=== PATIENT | female | born 1930 | race Caucasian/White ===

== ENCOUNTER 2017-02-20 21:07 | Inpatient (IN) | payer OTHER ==
[~2017-02-20] VITALS: Ht 167.6 cm; Wt 62.6 kg
[~2017-02-20 21:07] MED LIST: ALEN70TA PO; AMIO200T PO; HYDR-4446 PO; LEVO0.1211 PO; MAGN400T11 PO; METO25TA PO; MIRABULK PO; MULT-2410 PO; ORE25 PO; PIPE1SOL IV; SENN-72 PO; SIMV10TA6 PO
[2017-02-20 21:13] VITALS: BP 130/90
--- NOTE | 2017-02-20 21:39 | NUR ---
PT KARLENE BLS. TAKEN TO BED 8
--- NOTE | 2017-02-20 21:42 | NUR ---
PT MOVED TO BED 3
--- NOTE | 2017-02-20 21:47 | NUR ---
86 Y/O F BIBA C/O ABNORMAL LABS, SODIUM 166, PATIENT ALERT X 2, NON, VERBAL, ON NONREBREATHER MASK AT 15 LT, 02 SAT 99%. VSS, ER MD MADE AWARE.
[2017-02-20] MEDS ORDERED: DOCU-67 PO (21:56)
[2017-02-20] MEDS ORDERED: NA P135N19 RC (21:56)
[2017-02-20] MEDS ORDERED: ALEN70TA1 PO (21:56)
[2017-02-20] MEDS ORDERED: BISA-213 PR (21:56)
[2017-02-20] MEDS ORDERED: NACL 0.9% 2,000 ML IV ONE (22:05)
--- NOTE | 2017-02-20 22:10 | NUR ---
PT RESTING IN BED, RECEIVING IV FLUIDS, VS REMAIN STABLE. WILL CONT TO MONITOR.
[2017-02-20] MEDS ORDERED: MAGN400T7 PO (22:14)
[2017-02-20] MEDS ORDERED: ORE25 PO (22:14)
[2017-02-20] MEDS ORDERED: MAGN400S60 PO (22:14)
[2017-02-20] MEDS ORDERED: [UNRECOGNIZED DRUG - CODE] PO (22:14)
[2017-02-20] MEDS ORDERED: ACET-2869 PO (22:14)
[2017-02-20] MEDS ORDERED: METO25TA PO (22:14)
[2017-02-20] MEDS ORDERED: ASPI81EC97 PO (22:14)
[2017-02-20] MEDS ORDERED: ACET-1182 PO (22:14)
[2017-02-20 22:50] LABS: HEMOGLOBIN 16.4 g/dL (12.0-16.0); MEAN CORPUSCULAR HEMOGLOBIN 30 pg (27-31); MEAN CORPUSCULAR HGB CONC 31 g/dL (33-37); MEAN CORPUSCULAR VOLUME 95 fL (80-94); PLATELET COUNT (AUTO) 155 K/uL (140-450); RED BLOOD CELL COUNT(AUTO) 5.52 MIL/uL (4.20-5.40); RED CELL DISTRIBUTION WIDTH 14.6 % (11.6-13.7); WHITE BLOOD COUNT (AUTO) 8.5 K/uL (4.8-10.8)
[2017-02-20 22:52] LABS: APPEARANCE,URINE HAZY (CLEAR); BILIRUBIN,URINE NEGATIVE (NEGATIVE); BLOOD, URINE NEGATIVE (NEGATIVE); COLOR,URINE YELLOW (YELLOW); LEUKOCYTE ESTERASE ,URINE NEGATIVE (NEGATIVE); NITRITE, URINE NEGATIVE (NEGATIVE); PROTEIN,URINE NEGATIVE (NEGATIVE); UGLUCOSE NEGATIVE (NEGATIVE); UROBILINOGEN,URINE 0.2 EU/dL (0.2 - 1)
[2017-02-20 23:02] LABS: HEMATOCRIT 49.2 % (36-48)
[2017-02-20 23:03] LABS: BAND % (MANUAL) 14 % (0-8); LYMPHOCYTES % (MANUAL) 20 % (20-46); MONOCYTES % (MANUAL) 8 % (5-12); NEUTROPHILS % (MANUAL) 58 (43-65)
[2017-02-20 23:07] LABS: BACTERIA,URINE FEW /HPF (None Seen); MUCUS,URINE 4+ /LPF (None Seen); RBC,URINE 0-5 (RARE) /HPF (0-5); SQUAMOUS EPITHELIAL CELL,UR 0-3 (FEW) /LPF (0-3 (FEW)); URINE AMORPHOUS URATE 4+ /HPF (None Seen); WBC,URINE 0-5 (RARE) /HPF (0-5)
[2017-02-20 23:11] LABS: LACTIC ACID 1.7 mmol/L (0.4-2.0)
[2017-02-20 23:14] LABS: ANION GAP 11.1 (8-16); CARBON DIOXIDE 33.5 mmol/L (21-32); CHLORIDE 120 mmol/L (98-107); POTASSIUM 3.6 mmol/L (3.5-5.1)
[2017-02-20 23:15] LABS: ALKALINE PHOSPHATASE 165 U/L (46-116); CREATININE 2.5 mg/dL (0.6-1.3); GLUCOSE 147 mg/dL (74-106); TOTAL BILIRUBIN 0.4 mg/dL (0.0-1.0)
[2017-02-20 23:16] LABS: ALANINE AMINOTRANSFERASE 327 U/L (14-59); ALBUMIN 3.5 g/dL (3.4-5.0); ASPARTATE AMINOTRANSFERASE 282 U/L (15-37); TOTAL PROTEIN, SERUM 8.7 g/dL (6.4-8.2)
[2017-02-20 23:18] LABS: SODIUM SERUM 161 mmol/L (136-145)
[2017-02-20 23:19] LABS: UREA NITROGEN, BLOOD 87 mg/dL (7-18)
[2017-02-20] MEDS ORDERED: VANCOMYCIN 1GM/DEXT 5% PREMIX 200 ML IV ONE (23:45)
[2017-02-20] MEDS ORDERED: VANCOMYCIN PER PHARMACY MC PRN (23:45)
[2017-02-20] MEDS ORDERED: MEROPENEM 1,000 MG in NACL 0.9% 100 ML IV ONE (23:45)
--- NOTE | 2017-02-21 00:10 | NUR ---
PT RESTING IN BED, REPOSITIONED FOR COMFORT, VSS. WILL CONT TO MONITOR.
[2017-02-21] MEDS ORDERED: ONDANSETRON 4 MG/2 ML VIAL IM/IVP PRN (00:35)
[2017-02-21] MEDS ORDERED: DOCUSATE SODIUM 100 MG GELCAP PO PRN (00:35)
[2017-02-21] MEDS ORDERED: HYDROcodone/APAP 7.5/325 MG 1 TAB PO PRN (00:35)
[2017-02-21] MEDS ORDERED: MORPHINE SULFATE 2 MG/ML SYR IVP PRN (00:35)
[2017-02-21] MEDS ORDERED: ACETAMINOPHEN 325 MG TAB PO PRN (00:35)
[2017-02-21] MEDS ORDERED: MEROPENEM 1,000 MG VIAL IV ONE (00:39)
[2017-02-21] MEDS ORDERED: NACL 0.45% 1,000 ML IV ONE (00:45)
[2017-02-21] MEDS ORDERED: LEVOFLOXACIN 750 MG/D5W PREMIX 150 ML IV SCH (00:55)
[2017-02-21] MEDS ORDERED: PIPERACILLIN/TAZOBACTAM 2.25 GM in DEXTROSE 5% 50 ML IV SCH (00:55)
[2017-02-21 00:57] LABS: PARTIAL THROMBOPLASTIN TIME 23.2 secs (22-35.6); PROTHROMBIN TIME 10.4 secs (10.8-13.4)
[2017-02-21] MEDS ORDERED: VANCOMYCIN 1,000 MG VIAL ONE (01:12)
[2017-02-21] MEDS ORDERED: VANCOMYCIN 1GM/DEXT 5% PREMIX 200 ML IV ONE (01:25)
[2017-02-21] MEDS ORDERED: VANCOMYCIN PER PHARMACY MC PRN (01:25)
[2017-02-21 01:56] LABS: FREE T4 (FREE THYROXINE) 0.82 ng/dL (0.76-1.46); PHOSPHORUS 3.9 mg/dL (2.5-4.9); THYROID STIMULATING HORMONE 18.08 uIU/mL (0.34-3.74)
--- NOTE | 2017-02-21 02:10 | NUR ---
RESIDENT EVALUATING PT AT BEDSIDE.
--- NOTE | 2017-02-21 03:00 | NUR ---
PT ASLEEP, ON MONITOR, VSS. SINUS RHYTHM.
--- NOTE | 2017-02-21 04:10 | NUR ---
PT ASLEEP, REPOSITIONING DONE, VS REMAIN STABLE, NO S/S OF DISTRESS NOTED AT THE MOMENT. WILL CONT TO MONITOR.
[2017-02-21 04:14] LABS: BASOPHILS # (AUTO) 0.3 K/uL (0.00-0.22); BASOPHILS % (AUTO) 3.6 % (0.0-2.0); EOSINOPHILS # (AUTO) 0.2 K/uL (0-0.4); EOSINOPHILS % (AUTO) 2.7 % (0.0-4.0); LYMPHOCYTES # (AUTO) 1.7 K/uL (2.5-16.5); LYMPHOCYTES % (AUTO) 18.8 % (20.5-51.1); MEAN CORPUSCULAR HEMOGLOBIN 30 pg (27-31); MEAN CORPUSCULAR HGB CONC 32 g/dL (33-37); MEAN CORPUSCULAR VOLUME 95 fL (80-94); MONOCYTES # (AUTO) 0.5 K/uL (0.8-1.0); MONOCYTES % (AUTO) 5.7 % (1.7-9.3); NEUTROPHILS # (AUTO) 6.2 K/uL (1.8-7.7); NEUTROPHILS % (AUTO) 69.2 % (42.2-75.2); PLATELET COUNT (AUTO) 127 K/uL (140-450); RED BLOOD CELL COUNT(AUTO) 4.32 MIL/uL (4.20-5.40); RED CELL DISTRIBUTION WIDTH 14.6 % (11.6-13.7); WHITE BLOOD COUNT (AUTO) 8.9 K/uL (4.8-10.8)
[2017-02-21] MEDS ORDERED: NACL 0.9% 1,000 ML IV SCH (04:20)
--- NOTE | 2017-02-21 04:30 | NUR ---
PT TAKEN FOR CT SCAN.
[2017-02-21 04:34] LABS: ANION GAP 7.6 (8-16); CALCIUM 8.2 mg/dL (8.5-10.1); CARBON DIOXIDE 31.7 mmol/L (21-32); CHLORIDE 125 mmol/L (98-107); CREATININE 2.2 mg/dL (0.6-1.3); GLUCOSE 98 mg/dL (74-106); POTASSIUM 3.3 mmol/L (3.5-5.1)
[2017-02-21 04:35] LABS: MAGNESIUM 2.4 mg/dL (1.8-2.4); PHOSPHORUS 3.1 mg/dL (2.5-4.9)
[2017-02-21 04:48] LABS: SODIUM SERUM 161 mmol/L (136-145); UREA NITROGEN, BLOOD 76 mg/dL (7-18)
--- NOTE | 2017-02-21 05:19 | NUR ---
PT RESPOSITIONED FOR COMFORT, VSS, WILL CONT TO MONITOR.
[2017-02-21] MEDS ORDERED: MAGNESIUM HYDROXIDE 2400 MG/30 ML UDC PO SCH (05:20)
[2017-02-21] MEDS ORDERED: BISACODYL 10 MG SUPP RC SCH (05:20)
[2017-02-21] MEDS ORDERED: HYDROcodone/APAP 5/325 MG 1 TAB TAB PO SCH (05:20)
[2017-02-21] MEDS ORDERED: INSULIN LISPRO SLIDING SCALE 100 UNITS/ML VIAL SUBQ PRN (05:30)
[2017-02-21] MEDS ORDERED: DEXTROSE 50% 50 ML SYR IVP PRN (05:30)
--- NOTE | 2017-02-21 05:51 | NUR ---
Patient will be admitted to care of DR ESTEVES. Admited to TELEMETRY. Will go to room 124B. Belongings list completed. Report to EZRA MOREAU.
--- NOTE | 2017-02-21 06:02 | NUR ---
PT TRASFERRED TO FLOOR VIA [facility], ACCOMPANIED BY RN AND EMT. NO S/S OF DISTRESS NOTED DURING TRASFER.
[2017-02-21] MEDS ORDERED: ALENDRONATE SODIUM 70 MG TAB PO SCH (06:30)
--- NOTE | 2017-02-21 07:30 | NUR ---
RECEIVED REPORT FROM NIGHT NURSE AT PT BEDSIDE. PT RESTING IN BED. ON O2 4L NC. APHASIC. DOES NOT FOLLOW COMMANDS. PATIENT HAS EYES OPENING SPONTANEOUS. IV SITE PATENT AND INTACT. BED REST. RIGHT SIDE UE WEAKNESS/STIFFNESS. 2ND TOE LEFT FOOT NOTED TO BE AMPUTATED, NO S/S OF ACUTE DISTRESS. BOWENS IN PLACE TO GRAVITY IN MODERATE AMOUNT. WEAK BILATERAL PULSES BUE/BLE. CALL LIGHT WITHIN REACH. BED IN LOWEST POSITION. FALL PRECAUTION IN PLACE. WILL CONTINUE TO MONITOR.
[2017-02-21] MEDS ORDERED: ACETAMINOPHEN 325 MG TAB PO SCH (08:00)
[2017-02-21] MEDS: DOCUSATE SODIUM 100 MG GELCAP PO SCH ×2 (09:00→21:00)
[2017-02-21] MEDS: BLOOD GLUCOSE MONITORING 1 DEV DEV FS SCH ×4 (09:08→21:07)
--- NOTE | 2017-02-21 09:40 | NUR ---
PER MD NGT NEEDED FOR MEDICATION ADMINISTRATION. SOFT NGT INSERTED INTO RIGHT NARE, MARKED NGT PLACEMENT. AWAITING CHEST XR FOR CONFIRMED PLACEMENT. WILL CONTINUE TO MONITOR.
[2017-02-21] MEDS: CLINDAMYCIN 600 MG in DEXTROSE 5% 50 ML IV SCH ×3 (09:47→21:07)
[2017-02-21 10:50] VITALS: BP 121/64
[2017-02-21] MEDS ORDERED: DEXT 5% / NACL 0.45% 1,000 ML IV SCH (10:50)
[2017-02-21] MEDS: ALBUTEROL SULFATE/IPRATROPIU 3 ML SOL IH SCH ×4 (11:17→23:04)
--- NOTE | 2017-02-21 11:17 | NUR ---
SATURATION 100% ON SUPPLEMENTAL OXYGEN AT 4 LPM VIA NC POST HHN THERAPY TITRATED FIO2 TO 2LPM KEV/RN AT BEDSIDE AWARE
--- NOTE | 2017-02-21 11:30 | NUR ---
PATIENT UNABLE TO PARTICIPATE IN INCENTIVE SPIROMETRY THERAPY DUE TO LOC
--- NOTE | 2017-02-21 11:34 | NUR ---
PATIENT TAKEN FOR CT SCAN. NO S/S OF ACUTE DISTRESS NOTED.
[2017-02-21 12:00] VITALS: BP 124/56
[2017-02-21 12:34] LABS: ALANINE AMINOTRANSFERASE 208 U/L (14-59); ALBUMIN 2.7 g/dL (3.4-5.0); ALKALINE PHOSPHATASE 120 U/L (46-116); ANION GAP 6.6 (8-16); ASPARTATE AMINOTRANSFERASE 149 U/L (15-37); CALCIUM 8.2 mg/dL (8.5-10.1); CARBON DIOXIDE 32.9 mmol/L (21-32); CHLORIDE 125 mmol/L (98-107); CREATININE 2.1 mg/dL (0.6-1.3); GLUCOSE 99 mg/dL (74-106); POTASSIUM 3.5 mmol/L (3.5-5.1); TOTAL BILIRUBIN 0.5 mg/dL (0.0-1.0); TOTAL PROTEIN, SERUM 6.7 g/dL (6.4-8.2)
[2017-02-21 12:40] LABS: SODIUM SERUM 161 mmol/L (136-145)
[2017-02-21 12:41] LABS: UREA NITROGEN, BLOOD 72 mg/dL (7-18)
[2017-02-21] MEDS: ECOTRIN 81 MG TABEC PO SCH (13:04)
[2017-02-21] MEDS: METOPROLOL 25 MG TAB PO SCH ×2 (13:05→21:00)
[2017-02-21] MEDS: HYDROCHLOROTHIAZIDE 25 MG TAB PO SCH (13:05)
[2017-02-21] MEDS: SENNA 8.6 MG TAB PO SCH ×2 (13:05→21:00)
[2017-02-21] MEDS: LACTOBACILLUS RHAMNOSUS GG 1 EACH CAP PO SCH (13:05)
[2017-02-21] MEDS: MAGNESIUM OXIDE 400 MG TAB PO SCH ×2 (13:05→21:00)
[2017-02-21] MEDS: AMIODARONE 200 MG TAB PO SCH (13:06)
[2017-02-21] MEDS: MULTIVITAMIN 1 TAB PO SCH (13:06)
[2017-02-21] MEDS: POLYETHYLENE GLYCOL 17 GM/PKT PO SCH (13:06)
[2017-02-21] MEDS: LEVOTHYROXINE 0.075 MG TAB PO SCH (13:08)
--- NOTE | 2017-02-21 14:30 | NUR ---
ASSISTED PT IN CHANGING OF POSITIONS. NO S/S OF ACUTE DISTRESS.
--- NOTE | 2017-02-21 15:52 | NUR ---
ORAL PHARYNX SUCTION FOR MODERATE THICK PALE YELLOW SECRETIONS TOLERATED PROCEDURE WELL WITHOUT ADVERSE REACTIONS NOTED
[2017-02-21 16:00] VITALS: BP 115/80
--- NOTE | 2017-02-21 17:15 | NUR ---
ASLEEP EASILY AWAKENS CLASS CODE DNR ABG PROCEDURE FAINT TO ZERO PULSES LEFT SIDE ZERO PULSES AT RIGHT SIDE PUNCTURE X2 LEFT RADIAL TO LEFT BRACHIAL (FLASH) NATIONAL SALES DIRECTOR TO SPEAK TO DR. MICK COLINDRES
--- NOTE | 2017-02-21 17:25 | NUR ---
REVIEWED ABG ATTEMPT NOTED AT [address] MICK COLINDRES SUPERVISOR DAIRY SANITATION AND MD TO PATIENT BEDSIDE MD LOCATING FAINT PULSES AT LEFT RADIAL PULSE MD REQUEST ABG ATTEMPT DURING NOC SHIFT SUPERVISOR DAIRY SANITATION TO ENDORSE MD REQUEST TO NOC
--- NOTE | 2017-02-21 18:00 | NUR ---
MD MADE AWARE OF ABNORMAL LABS AND ELECTROLYTES. NO NEW ORDERS. MD TO CONTINUE TO MONITOR.
[2017-02-21 18:41] LABS: BLOOD GAS BASE EXCESS 2.9 mmol/L (-2.0-2.0); BLOOD GAS HCO3 28.4 mmol/L; BLOOD GAS O2 SAT% 98.3 % (92.0-98.5); BLOOD GAS PCO2 47.3 mmHg (20-50); BLOOD GAS PH 7.397 (7.35-7.45); BLOOD GAS PO2 125.4 mmHg
--- NOTE | 2017-02-21 18:46 | NUR ---
PATIENT FOUND WITH NG TUBE REMOVED. PCP MADE AWARE. NO NEW ORDERS. NO NEED TO REINSERT AT THIS TIME.
[2017-02-21 18:49] LABS: ANION GAP 11.5 (8-16); CALCIUM 8.2 mg/dL (8.5-10.1); CARBON DIOXIDE 31.5 mmol/L (21-32); CHLORIDE 125 mmol/L (98-107); GLUCOSE 99 mg/dL (74-106)
[2017-02-21 18:51] LABS: SODIUM SERUM 165 mmol/L (136-145); UREA NITROGEN, BLOOD 65 mg/dL (7-18)
--- NOTE | 2017-02-21 19:10 | NUR ---
ENDORSED PLAN OF CARE TO NIGHT RN AT PT BEDSIDE. NO S/S OF ACUTE DISTRESS NOTED.
--- NOTE | 2017-02-21 19:20 | NUR ---
183 ABG WAS DRAWN ON 2LNC. RESULTS NORMAL. SEE LAB RESULTS. DR NOTIFIED
--- NOTE | 2017-02-21 19:21 | NUR ---
RECEIVED REPORT FROM AM NURSE. PT IS ON BED ASLEEP, APHASIC. ON O2 VIA NC AT 2 L. IS ABLE TO OPEN EYES SPONTANEOUSLY TO TOUCH. ON BED REST. NO S/S OF DISTRESS. FLACC - 0. RIGHT SIDED WEAKNESS NOTED. NOTED WITH A LEFT FOOT 2ND TOE AMPUTATION. BOWENS IN PLACE, DRAINING TO YELLOW URINE. INITIAL ASSESSMENT DONE. CALL LIGHT WITHIN REACH. SAFETY CHECKS IN PLACE. WILL CONTINUE TO MONITOR FOR ANY CHANGES.
[2017-02-21 20:00] VITALS: BP 110/65
[2017-02-21] MEDS: SIMVASTATIN 10 MG TAB PO SCH (21:00)
--- NOTE | 2017-02-21 21:10 | NUR ---
SPOKE TO DR. RIVERS IN REGARDS TO GIVING PATIENT HER ORAL MEDICATION. MENTIONED THAT EARLIER HER NG TUBE WAS REMOVED DURING AM SHIFT AND THE MORNING DOCTORS KNEW AND THAT SHE IS MOST LIKELY TO ASPIRATE WHEN GIVEN MEDICATIONS ORALLY. SAID TO HOLD ORAL MEDICATIONS FOR THE NIGHT AND THAT SHE WILL JUST RECEIVE HER IV MEDICATIONS. NOTED.
[2017-02-21] MEDS ORDERED: NACL 0.45% 1,000 ML IV SCH (21:25)
[2017-02-21] MEDS ORDERED: POTASSIUM CHLORIDE 40 MEQ, LIDOCAINE 1% 25 MG in NACL 0.9% 250 ML IV ONE (21:30)
[2017-02-21] MEDS ORDERED: KCL 20 MEQ/WATER INJ PREMIX 200 ML IV ONE (22:10)
[2017-02-21] MEDS ORDERED: KCL 20 MEQ/WATER INJ PREMIX 200 ML IV SCH (22:15)
--- NOTE | 2017-02-21 23:09 | NUR ---
1900 PT UNABLE TO DO AN INSENTIVE SPIROMETER. PT DOES NOT FOLLOW COMMANDS
--- NOTE | 2017-02-21 23:30 | NUR ---
STARTED PT ON POTASSIUM CHLORIDE DUE TO POTASSIUM BEING 3.0.
[2017-02-22] VITALS: BP 109/51
--- NOTE | 2017-02-22 | NUR ---
VITAL SIGNS STABLE, WILL CONTINUE TO MONITOR. ALL NEEDS ATTENDED. CALL LIGHT WITHIN REACH. SAFETY CHECKS IN PLACE.
[2017-02-22 00:26] LABS: ANION GAP 10.7 (8-16); CARBON DIOXIDE 31.5 mmol/L (21-32); CHLORIDE 125 mmol/L (98-107); CREATININE 2.1 mg/dL (0.6-1.3); GLUCOSE 96 mg/dL (74-106); POTASSIUM 3.2 mmol/L (3.5-5.1); UREA NITROGEN, BLOOD 60 mg/dL (7-18)
--- NOTE | 2017-02-22 00:31 | NUR ---
RECEIVED CRITICAL LAB OF SODIUM OF 164. PAGED DR. RIVERS. AWAITING CALL BACK.
[2017-02-22 00:33] LABS: SODIUM SERUM 164 mmol/L (136-145)
--- NOTE | 2017-02-22 00:39 | NUR ---
DR. RIVERS PAGED BACK FOR THE CRITICAL LAB, NO NEW ORDERS. NOTED. WILL CONTINUE TO MONITOR.
--- NOTE | 2017-02-22 02:12 | NUR ---
MADE ROUNDS, PT ASLEEP. NO S/S OF DISTRESS. WILL CONTINUE TO MONITOR. CALL LIGHT WITHIN REACH.
[2017-02-22] MEDS: ALBUTEROL SULFATE/IPRATROPIU 3 ML SOL IH SCH ×6 (03:04→23:13)
[2017-02-22] MEDS: CLINDAMYCIN 600 MG in DEXTROSE 5% 50 ML IV SCH ×4 (03:28→20:37)
[2017-02-22 04:00] VITALS: BP 95/45
--- NOTE | 2017-02-22 04:14 | NUR ---
VITAL SIGNS STABLE. NO S/S OF DISTRESS. FLACC - 0. WILL CONTINUE TO MONITOR. ALL NEEDS ATTENDED. CALL LIGHT WITHIN REACH. SAFETY CHECKS IN PLACE.
[2017-02-22] MEDS ORDERED: DEXT 5% / NACL 0.45% 1,000 ML IV SCH (06:00)
[2017-02-22] MEDS ORDERED: DEXTROSE 5% 1,000 ML IV SCH (06:10)
[2017-02-22 06:14] LABS: BASOPHILS # (AUTO) 0.4 K/uL (0.00-0.22); BASOPHILS % (AUTO) 4.1 % (0.0-2.0); EOSINOPHILS # (AUTO) 0.1 K/uL (0-0.4); EOSINOPHILS % (AUTO) 1.6 % (0.0-4.0); HEMATOCRIT 37.4 % (36-48); HEMOGLOBIN 11.9 g/dL (12.0-16.0); LYMPHOCYTES # (AUTO) 1.7 K/uL (2.5-16.5); LYMPHOCYTES % (AUTO) 18.8 % (20.5-51.1); MEAN CORPUSCULAR HEMOGLOBIN 30 pg (27-31); MEAN CORPUSCULAR HGB CONC 32 g/dL (33-37); MEAN CORPUSCULAR VOLUME 95 fL (80-94); MONOCYTES # (AUTO) 0.9 K/uL (0.8-1.0); MONOCYTES % (AUTO) 9.7 % (1.7-9.3); NEUTROPHILS # (AUTO) 5.7 K/uL (1.8-7.7); NEUTROPHILS % (AUTO) 65.8 % (42.2-75.2); RED BLOOD CELL COUNT(AUTO) 3.93 MIL/uL (4.20-5.40); RED CELL DISTRIBUTION WIDTH 14.3 % (11.6-13.7)
[2017-02-22] MEDS: LEVOTHYROXINE 0.075 MG TAB PO SCH (06:29)
--- NOTE | 2017-02-22 06:29 | NUR ---
DID NOT GIVE MORNING PO MEDS DUE TO THE RISK OF ASPIRATION AND DR. RIVERS ALREADY AWARE.
[2017-02-22] MEDS ORDERED: ALENDRONATE SODIUM 70 MG TAB PO SCH (06:30)
[2017-02-22 06:34] LABS: ANION GAP 11.3 (8-16); CALCIUM 8.1 mg/dL (8.5-10.1); CARBON DIOXIDE 30.7 mmol/L (21-32); CHLORIDE 125 mmol/L (98-107); GLUCOSE 83 mg/dL (74-106); UREA NITROGEN, BLOOD 59 mg/dL (7-18)
[2017-02-22 06:37] LABS: SODIUM SERUM 163 mmol/L (136-145)
[2017-02-22 06:38] LABS: MAGNESIUM 2.3 mg/dL (1.8-2.4); PHOSPHORUS 3.5 mg/dL (2.5-4.9)
[2017-02-22] MEDS: BLOOD GLUCOSE MONITORING 1 DEV DEV FS SCH ×4 (06:47→20:37)
[2017-02-22 07:01] LABS: PLATELET COUNT (AUTO) 110 K/uL (140-450)
[2017-02-22 07:02] LABS: WHITE BLOOD COUNT (AUTO) 8.8 K/uL (4.8-10.8)
--- NOTE | 2017-02-22 07:13 | NUR ---
ASSUMED CONTINUITY OF CARE. NO SIGNS AND SYMPTOMS OF ACUTE DISTRESS NOTED. INITIAL ASSESSMENT DONE. RE-ORIENTED TO EVENTS AND SURROUNDINGS. HOB ELEVATED. ASPIRATION AND FALL PRECAUTION APPLIED. CALL LIGHT WITHIN REACH.
--- NOTE | 2017-02-22 07:13 | NUR ---
ENDORSED TO AM SHIFT NURSE FOR CONTINUITY OF CARE, IN STABLE CONDITION.
--- NOTE | 2017-02-22 07:44 | NUR ---
INFORMED DR. COLINDRES ABOUT PT. BS 71 AT 0647, AND RECOMMEND SWALLOW EVAL FOR PT. INABILITY TO SWALLOW. PER DR. COLINDRES SHE WILL HOLD ALL PO MEDS AND WILL ORDER SWALLOW EVAL.
[2017-02-22 08:00] VITALS: BP 103/46
--- NOTE | 2017-02-22 08:02 | NUR ---
Patient's Plan of Care was discussed and reviewed with MIRA: Uriel.
[2017-02-22 08:18] LABS: T4 (THYROXINE) 8.2 ug/dL (4.5-12.0)
[2017-02-22] MEDS: ECOTRIN 81 MG TABEC PO SCH (09:00)
[2017-02-22] MEDS: POLYETHYLENE GLYCOL 17 GM/PKT PO SCH (09:00)
[2017-02-22] MEDS: SENNA 8.6 MG TAB PO SCH ×2 (09:00→20:40)
[2017-02-22] MEDS: METOPROLOL 25 MG TAB PO SCH ×2 (09:00→20:40)
[2017-02-22] MEDS: HYDROCHLOROTHIAZIDE 25 MG TAB PO SCH (09:00)
[2017-02-22] MEDS: AMIODARONE 200 MG TAB PO SCH (09:00)
[2017-02-22] MEDS: MAGNESIUM OXIDE 400 MG TAB PO SCH ×2 (09:00→20:40)
[2017-02-22] MEDS: LACTOBACILLUS RHAMNOSUS GG 1 EACH CAP PO SCH (09:00)
[2017-02-22] MEDS: MULTIVITAMIN 1 TAB PO SCH (09:00)
[2017-02-22] MEDS: DOCUSATE SODIUM 100 MG GELCAP PO SCH ×2 (09:00→20:40)
[2017-02-22 09:14] LABS: HEMOGLOBIN A1C 5.9 % (4.8-5.6)
--- NOTE | 2017-02-22 10:50 | NUR ---
RT -PADMA CAME FOR PT. BREATHING TREATMENT. TOLERATED WELL.
--- NOTE | 2017-02-22 10:54 | NUR ---
02/22/17 RD INITIAL ASSESSMENT COMPLETED PLEASE REFER TO NUTRITION ASSESSMENT UNDER CARE ACTIVITY FOR ESTIMATED NUTRITIONAL NEEDS. 1. CONTINUE 60 GM CONSISTENT CARBOHYDRATE DIET, HONEY THICK LIQUIDS (WITH TEXTURE PER ST RECOMMENDATIONS). 2. IF PO DIET NOT FEASIBLE, WILL HONOR PATIENTS WISHES REGARDING NUTRITION SUPPORT 3. RD TO FOLLOW-UP 2-3 DAYS, HIGH RISK ALAINA FLOWERS RD
[2017-02-22 12:00] VITALS: BP 111/74
[2017-02-22 12:51] LABS: ANION GAP 11.5 (8-16); CALCIUM 7.8 mg/dL (8.5-10.1); CARBON DIOXIDE 31.2 mmol/L (21-32); CHLORIDE 122 mmol/L (98-107); GLUCOSE 78 mg/dL (74-106); POTASSIUM 3.7 mmol/L (3.5-5.1); UREA NITROGEN, BLOOD 55 mg/dL (7-18)
--- NOTE | 2017-02-22 12:59 | NUR ---
CLINICAL REVIEW DONE.
[2017-02-22 13:11] LABS: SODIUM SERUM 161 mmol/L (136-145)
--- NOTE | 2017-02-22 15:25 | NUR ---
WOUND CARE EVALUATION NOTES: REASON FOR EVALUATION: LOW IBAN SCORE - 11 COMPLETE SKIN ASSESSMENT DONE ON THIS 86 Y/O FEMALE PATIENT FROM [facility] TO [facility], WITH INITIAL DIAGNOSIS OF PNA. PAST MEDICAL AND SURGICAL HISTORY INCLUDE A FIB, PVD, DM, HTN. ALL ABOVE INFORMATION WAS OBTAINED FROM THE ADMISSION H&P. LABS ARE WBC 8.8, H/H 11.9/37.4, GLUCOSE 78, PT/INR 10.4/1.0 AND APTT 23.2. CURRENT MEDS IN CLUDE LEVOFLOXACIN, LISPRO INSULIN, METOPROLOL SIMVASTATIN, NORCO. PATIENT IS AWAKE, OPENS EYES, EYES ABLE TO TRACK MOVEMENT, BUT UNABLE TO FOLLOW SIMPLE COMMAND. FC 16 FR PATENT AND INTACT TO YELLOW COLOR URINE IN MODERATE AMOUNT. SKIN WARM AND DRY TO TOUCH WNL, NO EDEMA BLE, NO HAIR GROWTH AND BILATERAL PEDAL PULSES PRESENT AND STRONG . SCD I PLACE BLE. RIGHT AC PERIPHERAL LINE PATENT AND INTACT. NEEDS MAX ASSISTANCE WITH 2 PERSON IN TURNING. INITIAL PLAN OF CARE AND PRESSURE PREVENTIVE MEASURES DISCUSSED WITH PATIENT'S DAUGHTER, KEN. ABLE TO VERBALIZE UNDERSTANDING. INTEGUMENTARY: LEFT ARM - MULTIPLE ECCHYMOSIS WITH LARGEST MEASURE [id number] NASAL PASSAGE MUCOSAL MEMBRANE INTACT MILD LINE EPIGASTRIC-OLD SURGICAL SCAR BILATERAL HEELS - BLANCHABLE REDNESS LEFT SECOND TOE OLD AMPUTATION SCAR RECOMMENDATIONS: -APPLY MOISTURIZER TO DRY SKIN -TURN AND REPOSITION PATIENT Q2H -ASSESS AND MONITOR BLANCHABLE REDNESS ON BILATERAL HEELS. NOTIFY PMD OF ANY ABNORMAL CHANGES -OFFLOAD BILATERAL HEELS BY PLACING PILLOWS UNDER CALVES AT ALL TIMES, UNLESS OTHERWISE CONTRAINDICATED -KEEP SKIN CLEAN AND DRY AT ALL TIMES. -PRESSURE REDISTRIBUTION SURFACE THERAPY -DIETITIAN CONSULT RECOMMENDATIONS DISCUSSED WITH PRIMARY RN. WILL FOLLOW UP PATIENT Q 7 DAYS AND PRN. PLEASE CONTACT [facility] FOR ANY CONCERNS, QUESTIONS AND CHANGES IN SKIN CONDITION. Addendum: 02/22/17 at 1530 by Kirstin Guzman RN (Grace) WOUND CARE EVALUATION NOTES: REASON FOR EVALUATION: LOW IBAN SCORE - 11 COMPLETE SKIN ASSESSMENT DONE ON THIS 86 Y/O FEMALE PATIENT FROM [facility] TO [facility], WITH INITIAL DIAGNOSIS OF PNA. PAST MEDICAL AND SURGICAL HISTORY INCLUDE A FIB, PVD, DM, HTN. ALL ABOVE INFORMATION WAS OBTAINED FROM THE ADMISSION H&P. LABS ARE WBC 8.8, H/H 11.9/37.4, GLUCOSE 78, PT/INR 10.4/1.0 AND APTT 23.2. CURRENT MEDS IN CLUDE LEVOFLOXACIN, LISPRO INSULIN, METOPROLOL SIMVASTATIN, NORCO. PATIENT IS AWAKE, OPENS EYES, EYES ABLE TO TRACK MOVEMENT, BUT UNABLE TO FOLLOW SIMPLE COMMAND. FC 16 FR PATENT AND INTACT TO YELLOW COLOR URINE IN MODERATE AMOUNT. SKIN WARM AND DRY TO TOUCH WNL, NO EDEMA BLE, NO HAIR GROWTH AND BILATERAL PEDAL PULSES PRESENT AND STRONG . SCD I PLACE BLE. RIGHT AC PERIPHERAL LINE PATENT AND INTACT. NEEDS MAX ASSISTANCE WITH 2 PERSON IN TURNING. INITIAL PLAN OF CARE AND PRESSURE PREVENTIVE MEASURES DISCUSSED WITH PRIMARY RN. INTEGUMENTARY: LEFT ARM - MULTIPLE ECCHYMOSIS WITH LARGEST MEASURE [id number] NASAL PASSAGE MUCOSAL MEMBRANE INTACT MILD LINE EPIGASTRIC-OLD SURGICAL SCAR BILATERAL HEELS - BLANCHABLE REDNESS LEFT SECOND TOE OLD AMPUTATION SCAR RECOMMENDATIONS: -APPLY MOISTURIZER TO DRY SKIN -TURN AND REPOSITION PATIENT Q2H -ASSESS AND MONITOR BLANCHABLE REDNESS ON BILATERAL HEELS. NOTIFY PMD OF ANY ABNORMAL CHANGES -OFFLOAD BILATERAL HEELS BY PLACING PILLOWS UNDER CALVES AT ALL TIMES, UNLESS OTHERWISE CONTRAINDICATED -KEEP SKIN CLEAN AND DRY AT ALL TIMES. -PRESSURE REDISTRIBUTION SURFACE THERAPY -DIETITIAN CONSULT RECOMMENDATIONS DISCUSSED WITH PRIMARY RN. WILL FOLLOW UP PATIENT Q 7 DAYS AND PRN. PLEASE CONTACT [facility] FOR ANY CONCERNS, QUESTIONS AND CHANGES IN SKIN CONDITION.
--- NOTE | 2017-02-22 15:35 | NUR ---
RT CAME FOR SCHEDULED BREATHING TREATMENT. TOLERATED WELL. KEEP COMFORTABLE ON BED.
[2017-02-22 16:00] VITALS: BP 112/44
--- NOTE | 2017-02-22 18:42 | NUR ---
ST [facility] REPORTED THAT PT. FAILED SWALLOW EVAL. INFORMED CHARGE NURSE LILY SEWELL -EZRA.
--- NOTE | 2017-02-22 19:08 | NUR ---
* ST NOTE * Pt seen at bedside. Bedside dysphagia and oral mechanism exams completed. See evaluation report for further details. Pt tolerating 0/2 alternating PO trials of puree apple sauce 3-4 CCs at a time via a spoon, demonstrating labial leakage of trials, impaired AP bolus transit, as well as incomplete laryngeal excursion, causing pt to demonstrate coughing after PO intake. Pt also tolerating 0/2 alternating PO trials of honey-thickened apple juice 3-4 CCs at a time via a spoon as well, demonstrating labial leakage and impaired AP bolus transit, as well as wet, gargly vocal quality after PO intake. Due to pt's hx of aspiration PNA and current case of PNA as well as impaired AP bolus transit, impaired labial closure and hx of dysarthria, it is recommended pt remain NPO to avoid further PNA. Pt is at high risk for malnutrition & dehydration, thus an RD referral is recommmended for potential artificial means of nutrition vs hospice care secondary to pt's POLST. No further ST follow up recommended at this time. Pt and caregivers/nsg education completed regarding results of evaluation; benefits of abiding by strict NPO status secondary to pt being at high risk for aspiration PNA d/t severe oropharyngeal dysphagia; and recommendation for artificial means of nutrition vs hospice care secondary to pt's POLST, with pt and caregivers/nsg verbalizing understanding and agreement with clinician's recommendations. Recommend: - Pt remain NPO at this time secondary to severe oropharyngeal dysphagia placing pt at high risk for repeat aspiration PNA - Consultation with MD, RD and pt family regarding artificial means of nutrition vs. hospice care, secondary to pt's POLST stating preference for no artificial means of nutrition - Suction PRN - Frequent oral care secondary to dried secretions d/t pt being NPO No further ST follow up recommended at this time. G8996 CN G8997 CM G8998 CM NOMS Level 6 Time In/Out 18:15 - 18:45
[2017-02-22 19:11] LABS: ANION GAP 8.3 (8-16); CALCIUM 7.7 mg/dL (8.5-10.1); CARBON DIOXIDE 32.2 mmol/L (21-32); CHLORIDE 121 mmol/L (98-107); CREATININE 1.9 mg/dL (0.6-1.3); GLUCOSE 110 mg/dL (74-106); POTASSIUM 3.5 mmol/L (3.5-5.1); SODIUM SERUM 158 mmol/L (136-145); UREA NITROGEN, BLOOD 49 mg/dL (7-18)
--- NOTE | 2017-02-22 19:16 | NUR ---
BEDSIDE REPORT GIVEN TO LYNN GONSALVES -EZRA. IVF INFUSING WELL. IN STABLE CONDITION. ALSO ENDORSED THAT PT. FAILED SWALLOW EVAL.
--- NOTE | 2017-02-22 19:16 | NUR ---
RECEIVED REPORT FROM AM NURSE. PT IS ASLEEP, BUT IS ABLE TO OPEN EYES SPONTANEOUSLY WHEN TOUCHED AND APHASIC. ON O2 VIA NC AT 2L, WELL TOLERATED. NO S/S OF DISTRESS. FLACC - 0. NOTED THAT PT FAILED SWALLOW EVALUATION. ON TELE MONITORING. SKIN INTACT, NOTED WITH A LEFT FOOT 2ND TOE AMPUTATION. BOWENS CATHETER IN PLACE, DRAINING TO YELLOW URINE. INITIAL ASSESSMENT DONE. CALL LIGHT WITHIN REACH. SAFETY CHECKS IN PLACE. WILL CONTINUE TO MONITOR FOR ANY CHANGES.
[2017-02-22 20:00] VITALS: BP 105/65
[2017-02-22] MEDS: SIMVASTATIN 10 MG TAB PO SCH (20:41)
--- NOTE | 2017-02-22 20:41 | NUR ---
DID NOT GIVE THE PO MEDICATION TO PATIENT DUE TO FAILED SWALLOW EVALUATION IN THE MORNING AND NPO.
[2017-02-22] MEDS: LEVOFLOXACIN 750 MG/D5W PREMIX 150 ML IV SCH (21:18)
[2017-02-23] VITALS: BP 108/45
--- NOTE | 2017-02-23 | NUR ---
VITALS STABLE. NO S/S OF DISTRESS. FLACC - 0. WILL CONTINUE TO MONITOR. ALL NEEDS ATTENDED. CALL LIGHT WITHIN REACH. SAFETY CHECKS IN PLACE.
[2017-02-23 00:47] LABS: ANION GAP 10.6 (8-16); CALCIUM 7.4 mg/dL (8.5-10.1); CARBON DIOXIDE 30.8 mmol/L (21-32); CHLORIDE 118 mmol/L (98-107); CREATININE 1.9 mg/dL (0.6-1.3); GLUCOSE 85 mg/dL (74-106); POTASSIUM 3.4 mmol/L (3.5-5.1); SODIUM SERUM 156 mmol/L (136-145); UREA NITROGEN, BLOOD 45 mg/dL (7-18)
--- NOTE | 2017-02-23 02:10 | NUR ---
PAGED DR. RIVERS IN CLARIFICATION OF IV FLUIDS. SWITCHED FROM DEXTROSE 5% TO D5 1/2 NS DUE TO THE SODIUM GOING DOWN. NOTED AND CARRIED OUT.
[2017-02-23] MEDS: CLINDAMYCIN 600 MG in DEXTROSE 5% 50 ML IV SCH ×4 (02:42→20:45)
[2017-02-23] MEDS: DEXT 5% / NACL 0.45% 1,000 ML IV SCH ×3 (02:42→18:14)
[2017-02-23] MEDS: ALBUTEROL SULFATE/IPRATROPIU 3 ML SOL IH SCH ×6 (03:11→23:19)
[2017-02-23 04:00] VITALS: BP 110/87
--- NOTE | 2017-02-23 04:00 | NUR ---
VITAL SIGNS STABLE. NO S/S OF DISTRESS. FLACC - 0. WILL CONTINUE TO MONITOR. CALL LIGHT WITHIN REACH. SAFETY CHECKS IN PLACE.
[2017-02-23] MEDS ORDERED: MAGNESIUM HYDROXIDE 2400 MG/30 ML UDC PO PRN (05:20)
[2017-02-23] MEDS ORDERED: BISACODYL 10 MG SUPP RC PRN (05:20)
[2017-02-23] MEDS: LEVOTHYROXINE 0.075 MG TAB PO SCH (05:51)
--- NOTE | 2017-02-23 05:52 | NUR ---
DID NOT GIVE 0630 MEDS DUE TO NPO STATUS AND FAILED SWALLOWED EVALUATION
[2017-02-23 06:17] LABS: BASOPHILS # (AUTO) 0.2 K/uL (0.00-0.22); BASOPHILS % (AUTO) 3.4 % (0.0-2.0); EOSINOPHILS # (AUTO) 0.3 K/uL (0-0.4); EOSINOPHILS % (AUTO) 3.7 % (0.0-4.0); HEMATOCRIT 33.1 % (36-48); HEMOGLOBIN 10.5 g/dL (12.0-16.0); LYMPHOCYTES # (AUTO) 1.4 K/uL (2.5-16.5); LYMPHOCYTES % (AUTO) 20.2 % (20.5-51.1); MEAN CORPUSCULAR HEMOGLOBIN 30 pg (27-31); MEAN CORPUSCULAR HGB CONC 32 g/dL (33-37); MEAN CORPUSCULAR VOLUME 94 fL (80-94); MONOCYTES # (AUTO) 0.7 K/uL (0.8-1.0); MONOCYTES % (AUTO) 9.2 % (1.7-9.3); NEUTROPHILS # (AUTO) 4.5 K/uL (1.8-7.7); NEUTROPHILS % (AUTO) 63.5 % (42.2-75.2); RED BLOOD CELL COUNT(AUTO) 3.53 MIL/uL (4.20-5.40)
[2017-02-23 06:22] LABS: ANION GAP 9.5 (8-16); CALCIUM 7.6 mg/dL (8.5-10.1); CARBON DIOXIDE 29.8 mmol/L (21-32); CHLORIDE 118 mmol/L (98-107); CREATININE 1.8 mg/dL (0.6-1.3); GLUCOSE 91 mg/dL (74-106); POTASSIUM 3.3 mmol/L (3.5-5.1); SODIUM SERUM 154 mmol/L (136-145); UREA NITROGEN, BLOOD 42 mg/dL (7-18)
[2017-02-23 06:26] LABS: MAGNESIUM 1.9 mg/dL (1.8-2.4); PHOSPHORUS 2.8 mg/dL (2.5-4.9)
[2017-02-23 06:35] LABS: PLATELET COUNT (AUTO) 105 K/uL (140-450); WHITE BLOOD COUNT (AUTO) 7.1 K/uL (4.8-10.8)
[2017-02-23] MEDS: BLOOD GLUCOSE MONITORING 1 DEV DEV FS SCH ×4 (06:47→20:47)
--- NOTE | 2017-02-23 07:25 | NUR ---
ASSUMED CONTINUITY OF CARE. NO SIGNS AND SYMPTOMS OF ACUTE DISTRESS NOTED. INITIAL ASSESSMENT DONE. HOB ELEVATED. KEEP COMFORTABLE ON BED. FALL PRECAUTION APPLIED. CALL LIGHT WITHIN REACH.
--- NOTE | 2017-02-23 07:25 | NUR ---
ENDORSED TO AM SHIFT NURSE FOR CONTINUITY OF CARE, IN STABLE CONDITION.
[2017-02-23 08:00] VITALS: BP 121/53
--- NOTE | 2017-02-23 08:00 | NUR ---
Patient's Plan of Care was discussed and reviewed with BATTALION FIRE CHIEF: ELADIA GOMEZ
[2017-02-23] MEDS: HYDROCHLOROTHIAZIDE 25 MG TAB PO SCH (09:00)
[2017-02-23] MEDS: SENNA 8.6 MG TAB PO SCH ×2 (09:00→20:48)
[2017-02-23] MEDS: POLYETHYLENE GLYCOL 17 GM/PKT PO SCH (09:00)
[2017-02-23] MEDS: METOPROLOL 25 MG TAB PO SCH ×2 (09:00→20:47)
[2017-02-23] MEDS: LACTOBACILLUS RHAMNOSUS GG 1 EACH CAP PO SCH (09:00)
[2017-02-23] MEDS: MAGNESIUM OXIDE 400 MG TAB PO SCH ×2 (09:00→20:47)
[2017-02-23] MEDS: DOCUSATE SODIUM 100 MG GELCAP PO SCH ×2 (09:00→20:47)
[2017-02-23] MEDS: MULTIVITAMIN 1 TAB PO SCH (09:00)
[2017-02-23] MEDS: ECOTRIN 81 MG TABEC PO SCH (09:00)
[2017-02-23] MEDS: AMIODARONE 200 MG TAB PO SCH (09:00)
[2017-02-23] MEDS ORDERED: POTASSIUM CHLORIDE 40 MEQ, LIDOCAINE 1% 25 MG in NACL 0.9% 250 ML IV SCH (10:00)
[2017-02-23 12:00] VITALS: BP 115/56
[2017-02-23 12:48] LABS: ANION GAP 6.6 (8-16); CALCIUM 7.4 mg/dL (8.5-10.1); CARBON DIOXIDE 32.2 mmol/L (21-32); CHLORIDE 118 mmol/L (98-107); CREATININE 1.7 mg/dL (0.6-1.3); GLUCOSE 79 mg/dL (74-106); POTASSIUM 3.8 mmol/L (3.5-5.1); SODIUM SERUM 153 mmol/L (136-145); UREA NITROGEN, BLOOD 39 mg/dL (7-18)
--- NOTE | 2017-02-23 15:05 | NUR ---
RESPIRATORY THERAPIST ROLAND CAME FOR PT. BREATHING TREATMENT.
[2017-02-23 16:00] VITALS: BP 112/57
--- NOTE | 2017-02-23 18:42 | NUR ---
DR. JEFF CAME, CHECKED PT. CHART, AND SEEN PT..
--- NOTE | 2017-02-23 19:05 | NUR ---
BEDSIDE REPORT GIVEN TO RICKY FERRERA. IVF INFUSING WELL. IN STABLE CONDITION.
[2017-02-23 19:11] LABS: ANION GAP 7.4 (8-16); CALCIUM 7.3 mg/dL (8.5-10.1); CARBON DIOXIDE 30.4 mmol/L (21-32); CHLORIDE 118 mmol/L (98-107); CREATININE 1.6 mg/dL (0.6-1.3); GLUCOSE 84 mg/dL (74-106); POTASSIUM 3.8 mmol/L (3.5-5.1); SODIUM SERUM 152 mmol/L (136-145); UREA NITROGEN, BLOOD 33 mg/dL (7-18)
--- NOTE | 2017-02-23 19:20 | NUR ---
RECEIVED FROM AM NURSE IN BED . TELEMETRY MONITORING. PT. APHASIC. BOWENS CATHETER IN PLACE DRAINING WELL WITH YELLOW URINE. FLACC 0. FOR SWALLOW EVALUATION . PT. AT THIS TIME IS TOTAL CARE. WILL BE TURNED Q 2H. ON 02 AT 2LPM/NC. DX. OF PNA. AFEBRILE.
[2017-02-23 20:00] VITALS: BP 112/68
[2017-02-23] MEDS: SIMVASTATIN 10 MG TAB PO SCH (20:48)
--- NOTE | 2017-02-23 22:00 | NUR ---
SLEEPING WELL. IVF SITE INTACT AND NO INFILTRATION NOTED. TELEMETRY MONITORING. NEEDS WILL BE ANTICIPATED AND MET. TURNED Q 2H. 02 AT 2LPM/NC IN PLACE. AFEBRILE.
--- NOTE | 2017-02-24 00:16 | NUR ---
RESPIRATORY THERAPIST IN HERE TO GIVE PT. BREATHING TREATMENT. TOTAL CARE AND TURNED Q 2H. NEEDS ANTICIPATED AND MET. TELEMETRY MONITORING.APHASIC.
[2017-02-24 00:19] VITALS: BP 92/40
--- NOTE | 2017-02-24 02:00 | NUR ---
SLEEPING. NO RESTLESSNESS NOTED.
[2017-02-24 02:16] LABS: ANION GAP 8.9 (8-16); CALCIUM 7.3 mg/dL (8.5-10.1); CARBON DIOXIDE 28.6 mmol/L (21-32); CHLORIDE 117 mmol/L (98-107); CREATININE 1.6 mg/dL (0.6-1.3); GLUCOSE 96 mg/dL (74-106); POTASSIUM 3.5 mmol/L (3.5-5.1); SODIUM SERUM 151 mmol/L (136-145); UREA NITROGEN, BLOOD 30 mg/dL (7-18)
[2017-02-24] MEDS: CLINDAMYCIN 600 MG in DEXTROSE 5% 50 ML IV SCH ×4 (02:54→20:41)
[2017-02-24] MEDS: ALBUTEROL SULFATE/IPRATROPIU 3 ML SOL IH SCH ×6 (03:51→22:58)
[2017-02-24 04:35] VITALS: BP 117/55
--- NOTE | 2017-02-24 04:37 | NUR ---
TURNED Q2H. TOTAL CARE. APHASIC. TELEMETRY MONITORING.
[2017-02-24] MEDS: BLOOD GLUCOSE MONITORING 1 DEV DEV FS SCH ×4 (05:42→20:41)
[2017-02-24] MEDS: LEVOTHYROXINE 0.075 MG TAB PO SCH (05:42)
[2017-02-24 06:28] LABS: ANION GAP 8.2 (8-16); CALCIUM 7.3 mg/dL (8.5-10.1); CARBON DIOXIDE 28.3 mmol/L (21-32); CHLORIDE 117 mmol/L (98-107); CREATININE 1.6 mg/dL (0.6-1.3); GLUCOSE 96 mg/dL (74-106); POTASSIUM 3.5 mmol/L (3.5-5.1); SODIUM SERUM 150 mmol/L (136-145); UREA NITROGEN, BLOOD 27 mg/dL (7-18)
[2017-02-24] MEDS: DEXT 5% / NACL 0.45% 1,000 ML IV SCH ×2 (07:01→18:17)
--- NOTE | 2017-02-24 07:20 | NUR ---
ENDORSED TO THE NEXT RN FOR CONTINUITY OF CARE. APHASIC. NEEDS ANTICIPATED AND MET. TURNED Q 2H. TOTAL CARE. BREATHING TREATMNETS CONTINUOS BY RT.
[2017-02-24 08:00] VITALS: BP 101/72
--- NOTE | 2017-02-24 08:12 | NUR ---
RECEIVED REPORT FROM PRECISION INSTRUMENT MAKER NURSE, PT IS SLEEPING IN BED, AWAKEN WHEN CALLED BY NAME, PT IS A/OX1, PT IS APHASIC, PT IS BEDBOUND, IV IS ON THE LEFT FA, PATENT, INTACT, FLUSHING WELL, PT ALSO HAS IV ON THE RT AC, PATENT, INTACT, FLUSHING WELL, ON SL, SKIN IS INTACT, PT HAS A BOWENS CATHETER IN PLACE, 100 ML OF CLEAR YELLOW URINE NOTED IN BOWENS BAG, PT IS ON O2 2L NC, NO S/S OF RESPIRATORY DISTRESS OR DISCOMFORT NOTED, SAFETY/FALL PRECAUTIONS ARE IN PLACE, DISCUSSED PLAN OF CARE TO PT, PT UNABLE TO COMPREHEND, CALL LIGHT IS WITHIN REACH, WILL CONTINUE TO MONITOR. Addendum: 02/24/17 at 1015 by Jaqueline Dejesus RN REPORT WAS RECEIVED FROM PRECISION INSTRUMENT MAKER NURSE AT 0725.
--- NOTE | 2017-02-24 08:28 | NUR ---
DUE IVPB HUNG, PT IS RESTING IN BED IN SEMI FOWLERS POSITION, NO S/S OF RESPIRATORY DISTRESS OR DISCOMFORT NOTED, CALL LIGHT WITHIN REACH.
[2017-02-24] MEDS: METOPROLOL 25 MG TAB PO SCH ×2 (09:00→21:00)
[2017-02-24] MEDS: MAGNESIUM OXIDE 400 MG TAB PO SCH ×2 (09:00→21:00)
[2017-02-24] MEDS: SENNA 8.6 MG TAB PO SCH ×2 (09:00→21:00)
[2017-02-24] MEDS: HYDROCHLOROTHIAZIDE 25 MG TAB PO SCH (09:00)
[2017-02-24] MEDS: LACTOBACILLUS RHAMNOSUS GG 1 EACH CAP PO SCH (09:00)
[2017-02-24] MEDS: DOCUSATE SODIUM 100 MG GELCAP PO SCH ×2 (09:00→21:40)
[2017-02-24] MEDS: AMIODARONE 200 MG TAB PO SCH (09:00)
[2017-02-24] MEDS: MULTIVITAMIN 1 TAB PO SCH (09:00)
[2017-02-24] MEDS: ECOTRIN 81 MG TABEC PO SCH (09:00)
[2017-02-24] MEDS: POLYETHYLENE GLYCOL 17 GM/PKT PO SCH (09:00)
--- NOTE | 2017-02-24 10:16 | NUR ---
PT IS SLEEPING IN BED AT THIS TIME, CALL LIGHT IS WITHIN REACH.
--- NOTE | 2017-02-24 10:30 | NUR ---
02/24/17 RD FOLLOW UP COMPLETED PLEASE REFER TO NUTRITION PROGRESS NOTE UNDER CARE ACTIVITY FOR ESTIMATED NUTRITION NEEDS. RD RECOMMENDATIONS: 1. CONTINUE NPO MEDICALLY APPROPRIATE. 2. CONSULT RDN PRN. 3. RD WILL F/U 2-3 DAYS; HIGH RISK. VALENTIN PEREZ MS, RDN
[2017-02-24 12:00] VITALS: BP 95/55
--- NOTE | 2017-02-24 12:15 | NUR ---
PATIENT TURNED FOR COMFORT, CALL LIGHT WITHIN REACH, WILL CONTINUE TO MONITOR.
[2017-02-24 12:44] LABS: ANION GAP 8.1 (8-16); CALCIUM 7.3 mg/dL (8.5-10.1); CARBON DIOXIDE 28.3 mmol/L (21-32); CHLORIDE 115 mmol/L (98-107); CREATININE 1.5 mg/dL (0.6-1.3); GLUCOSE 101 mg/dL (74-106); POTASSIUM 3.4 mmol/L (3.5-5.1); SODIUM SERUM 148 mmol/L (136-145); UREA NITROGEN, BLOOD 24 mg/dL (7-18)
--- NOTE | 2017-02-24 14:00 | NUR ---
PT SLEEPING IN BED AT THIS TIME, CALL LIGHT WITHIN REACH.
--- NOTE | 2017-02-24 15:28 | NUR ---
DUE IVPB HUNG, PT TOLERATED WELL, NO REACTION, CALL LIGHT WITHIN REACH.
[2017-02-24 16:00] VITALS: BP 99/46
--- NOTE | 2017-02-24 17:30 | NUR ---
PT TURNED FOR COMFORT, ALL NEEDS ARE MET, CALL LIGHT WITHIN REACH.
[2017-02-24 18:59] LABS: CALCIUM 7.2 mg/dL (8.5-10.1); CARBON DIOXIDE 27.3 mmol/L (21-32); CHLORIDE 114 mmol/L (98-107); CREATININE 1.5 mg/dL (0.6-1.3); GLUCOSE 88 mg/dL (74-106); POTASSIUM 3.3 mmol/L (3.5-5.1); SODIUM SERUM 148 mmol/L (136-145); UREA NITROGEN, BLOOD 23 mg/dL (7-18)
--- NOTE | 2017-02-24 19:18 | NUR ---
ENDORSED PT TO POISER BALANCE NURSE FOR CONTINUITY OF CARE, PT STABLE AT THIS TIME, RT IS AT BEDSIDE.
--- NOTE | 2017-02-24 19:35 | NUR ---
RECEIVED FROM AM RN IN BED AWAKE . NON-VERBAL. RESPIRATORY THERAPIST IN HERE TO GIVE BREATHING TREATMENT. PT. TOTAL CARE. TURNED Q 2H. FLACC 0-. TELEMETRY MONITORING . BOWENS CATHETER IN PLACE AND DRAINING WELL WITH YELLOW URINE. IVF SITE TO LFA#22 INTACT AND NO INFILTRATION NOTED. WITH D5 1/2 NS INFUSING AT 100 ML/H. NEEDS WILL BE ANTICIPATED AND WILL BE MET.
[2017-02-24 19:52] VITALS: BP 103/60
[2017-02-24] MEDS: LEVOFLOXACIN 750 MG/D5W PREMIX 150 ML IV SCH (20:42)
[2017-02-24] MEDS: SIMVASTATIN 10 MG TAB PO SCH (21:00)
--- NOTE | 2017-02-24 21:42 | NUR ---
P.O. MEDICATIONS NOT GIVEN RT SWALLOW EVALUATION RESULT FAILED. MD AWARE OF IT.
--- NOTE | 2017-02-24 23:09 | NUR ---
SLEEPING AT THIS TIME. OPENS EYES WHEN TOUCHED. APHASIC. TELEMETRY MONITORING. NEEDS ANTICIPATED AND WILL BE MET. TOTAL CARE.
[2017-02-25 00:38] VITALS: BP 117/37
--- NOTE | 2017-02-25 02:45 | NUR ---
SLEEPING. NO RESTLESSNESS. TELEMETRY MONITORING. IVF SITE CHECKED AND NO INFILTRATION NOTED. TURNED TO SIDES BY FARE ENFORCEMENT OFFICER Q 2H.
[2017-02-25] MEDS: ALBUTEROL SULFATE/IPRATROPIU 3 ML SOL IH SCH ×5 (03:16→19:36)
--- NOTE | 2017-02-25 03:23 | NUR ---
RESPIRATORY THERAPIST IN HERE AND GIVING BREATHING TREATMENTS . AWAKE AND NON VERBAL. PT. TURNED TO SIDES Q2H BY CNAS. KEPT CLEAN AND DRY.
[2017-02-25] MEDS: CLINDAMYCIN 600 MG in DEXTROSE 5% 50 ML IV SCH ×4 (03:27→21:10)
[2017-02-25] MEDS: DEXT 5% / NACL 0.45% 1,000 ML IV SCH ×2 (04:31→14:17)
[2017-02-25 04:50] VITALS: BP 116/52
[2017-02-25] MEDS: LEVOTHYROXINE 0.075 MG TAB PO SCH (05:43)
[2017-02-25] MEDS: BLOOD GLUCOSE MONITORING 1 DEV DEV FS SCH ×4 (05:43→20:43)
[2017-02-25 06:05] LABS: ANION GAP 9.6 (8-16); CALCIUM 7.2 mg/dL (8.5-10.1); CARBON DIOXIDE 26.8 mmol/L (21-32); CHLORIDE 111 mmol/L (98-107); CREATININE 1.5 mg/dL (0.6-1.3); GLUCOSE 80 mg/dL (74-106); MAGNESIUM 1.5 mg/dL (1.8-2.4); PHOSPHORUS 3.1 mg/dL (2.5-4.9); POTASSIUM 3.4 mmol/L (3.5-5.1); SODIUM SERUM 144 mmol/L (136-145); UREA NITROGEN, BLOOD 19 mg/dL (7-18)
--- NOTE | 2017-02-25 07:07 | NUR ---
ENDORSED TO THE NEXT RN FOR CONTINUITY OF CARE. AWAKE AND ALERT. FLACC 0- TELEMETRY MONITORING. NEEDS WERE ANTICIPATED AND MET. TOTAL CARE. TURNED Q 2H.
--- NOTE | 2017-02-25 07:15 | NUR ---
RECEIVED REPORT FROM HEAD HOLDER NURSE, PT IS SLEEPING IN BED, AWAKEN WHEN CALLED BY NAME, PT IS A/OX1, PT IS APHASIC, PT IS BEDBOUND, IV IS ON THE LEFT FA, PATENT, INTACT, FLUSHING WELL, PT ALSO HAS IV ON THE RT AC, PATENT, INTACT, FLUSHING WELL, ON SL, SKIN IS INTACT, PT HAS A BOWENS CATHETER IN PLACE, 100 ML OF CLEAR YELLOW URINE NOTED IN BOWENS BAG, PT IS ON O2 2L NC, NO S/S OF RESPIRATORY DISTRESS OR DISCOMFORT NOTED, SAFETY/FALL PRECAUTIONS ARE IN PLACE, DISCUSSED PLAN OF CARE TO PT, PT UNABLE TO COMPREHEND, CALL LIGHT IS WITHIN REACH, WILL CONTINUE TO MONITOR.
[2017-02-25 08:00] VITALS: BP 107/54
[2017-02-25] MEDS: DOCUSATE SODIUM 100 MG GELCAP PO SCH ×2 (08:10→21:00)
[2017-02-25] MEDS: ECOTRIN 81 MG TABEC PO SCH (08:10)
[2017-02-25] MEDS: AMIODARONE 200 MG TAB PO SCH (08:11)
[2017-02-25] MEDS: METOPROLOL 25 MG TAB PO SCH ×2 (08:11→21:00)
[2017-02-25] MEDS: LACTOBACILLUS RHAMNOSUS GG 1 EACH CAP PO SCH (08:11)
[2017-02-25] MEDS: HYDROCHLOROTHIAZIDE 25 MG TAB PO SCH (08:12)
[2017-02-25] MEDS: SENNA 8.6 MG TAB PO SCH ×2 (08:12→21:00)
[2017-02-25] MEDS: POLYETHYLENE GLYCOL 17 GM/PKT PO SCH (08:12)
[2017-02-25] MEDS: MULTIVITAMIN 1 TAB PO SCH (08:13)
[2017-02-25] MEDS ORDERED: MAG SULF 2000 MG/WATER PREMIX 100 ML IV SCH (08:30)
--- NOTE | 2017-02-25 09:30 | NUR ---
PATIENT RESTING IN BED AT THIS TIME, CALL LIGHT IS WITHIN REACH.
--- NOTE | 2017-02-25 10:15 | NUR ---
PATIENT TRANSFERRED OVER TO WOUND CARE BED BY RECOMMENDATIONS OF WOUND CARE NURSE (ARNOLDO).
[2017-02-25 11:06] LABS: ALBUMIN 2.3 g/dL (3.4-5.0); BILIRUBIN,DIRECT 0.1 mg/dL (0.0-0.3); TOTAL BILIRUBIN 0.4 mg/dL (0.0-1.0); TOTAL PROTEIN, SERUM 5.6 g/dL (6.4-8.2)
--- NOTE | 2017-02-25 11:56 | NUR ---
SS NOTE: PER PRECIOUS FROM [facility] THEY ARE CONTRACTED WITH [facility] AND [facility] I SPOKE WITH PT'S DTR, ESTELA AND MADE HER AWARE OF THE ABOVE INFORMATION. SHE STATED THAT SHE WOULD LIKE TO SEE HOW PT DOES WITH HER SWALLOW EVAL PRIOR TO MEETING WITH HOSPICE. SHE ALSO STATED THAT IF PT PASSES HER SWALLOW EVAL THEN SHE WOULD LIKE PT TO RETURN TO [facility] WITHOUT HOSPICE BUT IF SHE DOES NOT PASS IT THEN SHE WILL MAKE A CHOICE TO WHICH HOSPICE AGENCY SHE WOULD LIKE TO WORK WITH.
[2017-02-25 12:00] VITALS: BP 98/41
--- NOTE | 2017-02-25 12:06 | NUR ---
PT IS RESTING IN BED AT THIS TIME, VITAL SIGNS AND BLOOD SUGAR CHECKED.
--- NOTE | 2017-02-25 14:50 | NUR ---
PATIENT REPOSITIONED IN BED FOR COMFORT, CALL LIGHT IS WITHIN REACH.
[2017-02-25 16:00] VITALS: BP 125/50
--- NOTE | 2017-02-25 16:22 | NUR ---
S.T. NOTES PLS REFER TO HARD CHART DOWNTIME FORM FOR SWALLOW RE-EVALUATION AND ST RECOMMENDATION, NRSG MADE AWARE.
--- NOTE | 2017-02-25 16:25 | NUR ---
NOTIFIED DR. COLINDRES OF THE PATIENT'S POTASSIUM LEVEL, DR. COLINDRES SAID SHE WOULD PUT IN AN ORDER FOR POTASSIUM.
[2017-02-25] MEDS ORDERED: KCL 20 MEQ/WATER INJ PREMIX 100 ML IV ONE (17:00)
[2017-02-25] MEDS ORDERED: POTASSIUM CHLORIDE 40 MEQ, LIDOCAINE 1% 25 MG in NACL 0.9% 250 ML IV SCH (17:30)
--- NOTE | 2017-02-25 17:30 | NUR ---
PATIENT REPOSITIONED IN BED FOR COMFORT AT THIS TIME.
--- NOTE | 2017-02-25 18:14 | NUR ---
PATIENT IS IN BED AT THIS TIME, PT IS RESTLESS, KEEPS DANGLING LEGS TO THE SIDE OF THE BED. PATIENT REPOSITIONED BACK IN BED.
[2017-02-25] MEDS ORDERED: MORPHINE SULFATE 2 MG/ML SYR IVP PRN (18:15)
--- NOTE | 2017-02-25 18:17 | NUR ---
SPOKE TO DR. ORTEGA (RESIDENT) I LET HIM KNOW PATIENT WAS RESTLESS IN BED. HE SAID HE WOULD PUT IN AN ORDER FOR MEDICATION.
--- NOTE | 2017-02-25 19:26 | NUR ---
PT ENDORSED TO VOCATIONAL GUIDANCE COUNSELOR NURSE FOR CONTINUITY OF CARE, PT STABLE AT THIS TIME.
--- NOTE | 2017-02-25 19:27 | NUR ---
RECEIVED PT FROM ELINOR RN PT APHASIC OPEN EYES NOT DISTRESS NOTED N TELEMETRY SR BBB , REPOSITIONED INITIL ASSESSMENT DONE
[2017-02-25 20:00] VITALS: BP 116/83
[2017-02-25] MEDS: SIMVASTATIN 10 MG TAB PO SCH (21:00)
--- NOTE | 2017-02-25 22:00 | NUR ---
PT REPOSITIONED Q2H NOT DISTRESS NOTED IV ON RT FA INFUSING WELL ON TELEMETRY SR
[2017-02-26] VITALS: BP 120/55
[2017-02-26] MEDS: ALBUTEROL SULFATE/IPRATROPIU 3 ML SOL IH SCH ×5 (00:03→15:14)
--- NOTE | 2017-02-26 01:00 | NUR ---
RESP THERAPY IS HERE ASSISTING THE PT
[2017-02-26] MEDS: CLINDAMYCIN 600 MG in DEXTROSE 5% 50 ML IV SCH ×3 (02:28→15:16)
[2017-02-26] MEDS: DEXT 5% / NACL 0.45% 1,000 ML IV SCH ×2 (02:31→10:10)
--- NOTE | 2017-02-26 03:50 | NUR ---
RESP THERAPY IS HERE AND FIVE BREATHING TX
[2017-02-26 04:00] VITALS: BP 102/59
--- NOTE | 2017-02-26 04:09 | NUR ---
SPONGE BATH GIVEN LINEN CHANGED ON TELEMETRY SR, PT REPOSITIONED Q2H NOT DISTRESS NOTED .
[2017-02-26 05:40] LABS: BASOPHILS # (AUTO) 0.1 K/uL (0.00-0.22); BASOPHILS % (AUTO) 1.9 % (0.0-2.0); EOSINOPHILS # (AUTO) 0.2 K/uL (0-0.4); EOSINOPHILS % (AUTO) 3.3 % (0.0-4.0); HEMATOCRIT 28.5 % (36-48); HEMOGLOBIN 9.4 g/dL (12.0-16.0); LYMPHOCYTES # (AUTO) 1.3 K/uL (2.5-16.5); MEAN CORPUSCULAR HEMOGLOBIN 30 pg (27-31); MEAN CORPUSCULAR HGB CONC 33 g/dL (33-37); MEAN CORPUSCULAR VOLUME 92 fL (80-94); MONOCYTES # (AUTO) 0.6 K/uL (0.8-1.0); MONOCYTES % (AUTO) 9.5 % (1.7-9.3); NEUTROPHILS # (AUTO) 4.3 K/uL (1.8-7.7); NEUTROPHILS % (AUTO) 65.3 % (42.2-75.2); RED BLOOD CELL COUNT(AUTO) 3.11 MIL/uL (4.20-5.40); RED CELL DISTRIBUTION WIDTH 13.9 % (11.6-13.7)
[2017-02-26] MEDS: BLOOD GLUCOSE MONITORING 1 DEV DEV FS SCH ×3 (05:55→16:32)
[2017-02-26] MEDS: LEVOTHYROXINE 0.075 MG TAB PO SCH (05:55)
--- NOTE | 2017-02-26 05:56 | NUR ---
PT AWAKE AOX1 REPOSITIONED Q2H NOT DISTRESS NOTED ON TELEMETRY SR, BOWENS CATH DRAINING WELL
[2017-02-26 06:30] LABS: ANION GAP 8.6 (8-16); CALCIUM 7.3 mg/dL (8.5-10.1); CARBON DIOXIDE 25.3 mmol/L (21-32); CHLORIDE 112 mmol/L (98-107); CREATININE 1.4 mg/dL (0.6-1.3); GLUCOSE 95 mg/dL (74-106); POTASSIUM 3.9 mmol/L (3.5-5.1); SODIUM SERUM 142 mmol/L (136-145); UREA NITROGEN, BLOOD 13 mg/dL (7-18); WHITE BLOOD COUNT (AUTO) 6.5 K/uL (4.8-10.8)
[2017-02-26 06:31] LABS: PLATELET COUNT (AUTO) 100 K/uL (140-450)
[2017-02-26 06:38] LABS: MAGNESIUM 2.5 mg/dL (1.8-2.4); PHOSPHORUS 3.2 mg/dL (2.5-4.9)
--- NOTE | 2017-02-26 07:25 | NUR ---
REPORT RECEIVED FROM PHARMACY ASSOCIATE, PT RESTING QUIETLY IN NAD, RESP EVEN UNLABORED, SKIN WARMD RY COLOR WNL, IVF INFUSING WELL, IV SITE CLEAR, PLAN OF CARE REVIEWED, PT NPO FOR ESOPHAGRAM TODAY, BOWENS DRAINING WELL, POSITION CHANGED, CALL WYNNE WITHIN REACH, SIDE RAILS UP, WILL CONTINUE TO MONITOR.
[2017-02-26 08:00] VITALS: BP 110/51
[2017-02-26] MEDS: DOCUSATE SODIUM 100 MG GELCAP PO SCH (08:56)
[2017-02-26] MEDS: LACTOBACILLUS RHAMNOSUS GG 1 EACH CAP PO SCH (08:56)
[2017-02-26] MEDS: ECOTRIN 81 MG TABEC PO SCH (08:56)
[2017-02-26] MEDS: AMIODARONE 200 MG TAB PO SCH (08:56)
[2017-02-26] MEDS: POLYETHYLENE GLYCOL 17 GM/PKT PO SCH (08:57)
[2017-02-26] MEDS: SENNA 8.6 MG TAB PO SCH (08:57)
[2017-02-26] MEDS: METOPROLOL 25 MG TAB PO SCH (08:57)
[2017-02-26] MEDS: MULTIVITAMIN 1 TAB PO SCH (08:57)
[2017-02-26] MEDS: HYDROCHLOROTHIAZIDE 25 MG TAB PO SCH (08:57)
--- NOTE | 2017-02-26 08:58 | NUR ---
DUE PO MEDS NOT GIVEN PT FAILED SWALLOW EVAL, NPO, SCHEDULED FOR ESOPHAGRAM TODAY.
[2017-02-26] MEDS ORDERED: ZOS2.25PM IV (10:22)
--- NOTE | 2017-02-26 10:40 | NUR ---
BED BATH GIVEN, PERICARE DONE, LINEN CHANGED, MOUTH CARE DONE BY MARINA WILSON, PT CARLA WELL, PT POSITIONED FOR COMFORT, IV RESECURED, NO IMMEDIATE NEEDS IDENTIFIED, WILL CONTINUE TO MONTIOR
--- NOTE | 2017-02-26 11:23 | NUR ---
SS NOTE: PER ERIC FROM [facility] ([phone]), THEIR NURSE IS ON THE WAY TO EVALUATE PT AND THEY WILL BE CONTACTING PT'S DAMIENRESTELA TO SCHEDULE AN APPT FOR TODAY.
--- NOTE | 2017-02-26 11:36 | NUR ---
FINGER STICK GLUCOSE AND VITALS TAKEN, PT RESTING QUIETLY IN NAD, RESP EVEN UNLABORED, TRANSFER ORDER RECEIVED, PER CM, AWAITING HOSPICE NURSE TO COME FOR EVALUATION AND FAMILY TO SIGN ON WITH HOSPICE CARE BEFORE TRANSFER CAN BE DONE, WILL CONTINUE TO MONITOR
[2017-02-26 12:00] VITALS: BP 98/48
--- NOTE | 2017-02-26 12:50 | NUR ---
RADHA RENDON FROM [facility] HERE TO SEE PT.
--- NOTE | 2017-02-26 13:59 | NUR ---
PT SLEEPING QUIELTY IN NAD, RESP EVEN UNLABORED, SKIN COLOR WNL, PER RADHA FROM [facility], AWAITING ON HOSPICE ADMISSION NURSE TO COME ASSESS PT. WILL CONTINUE TO MONITOR.
--- NOTE | 2017-02-26 14:58 | NUR ---
[facility] NURSE AT BEDSIDE. Addendum: 02/26/17 at 1524 by Eden Kaplan RN REPORT GIVEN TO [facility] NURSE
--- NOTE | 2017-02-26 16:00 | NUR ---
PER INGRID [facility] NURSE, TRANSPORT TO ARRIVE AT 1800 TO [facility] [place].
[2017-02-26 16:29] VITALS: BP 95/48
--- NOTE | 2017-02-26 17:10 | NUR ---
REPORT CALLED TO NURSE SIERRA AT [facility] [place] AT [phone]
--- NOTE | 2017-02-26 17:11 | NUR ---
[facility] CARE DONE, DIAPER CHANGED, GOWN CHANGED, POSITION CHANGED FOR COMFORT, BOWENS REMAINS DRAINING CLEAR URINE, IVF CONTINUES, IV SITE CLEAR.
--- NOTE | 2017-02-26 18:07 | NUR ---
[facility] COX FOR TRANSPORT. Addendum: 02/26/17 at 1807 by Eden Kaplan RN [facility]
--- NOTE | 2017-02-26 18:15 | NUR ---
REPORT GIVEN TO [facility] EMT. MEDICAL RECORDS GIVEN. ALL QUESTIONS ANSWERED. PT RESTING QUIETLY WITH EYES CLOSE. RESP EVEN UNLABORED ON 2L NC. SKIN WOUND DRY. COLOR WNL. PT AROUSED EASILY BY VOICE. BOWENS DRAINING CLEAR YELLOW URINE. IV SALINE LOCK TO L FA, R AC. SITE INTACT AND PATENT. ALL BELONGINGS GIVEN TO [facility], PT TRANSFERRED TO [facility] [place] AT THIS TIME.
[2017-03-03] MEDS ORDERED: DEXTROSE 5% 1,000 ML IV SCH (06:10)
== END 2017-02-26 18:20 | DRG 177 ==
LOC: MED 21:07 → MTU 02-21 00:39
PROVIDERS: ADMIT Family Medicine; ATTEND Family Medicine
DX: J69.0 Pneumonitis due to inhalation of food and vomit (principal); N17.0 Acute kidney failure with tubular necrosis; E43 Unspecified severe protein-calorie malnutrition; E87.0 Hyperosmolality and hypernatremia; G93.41 Metabolic encephalopathy; I48.0 Paroxysmal atrial fibrillation; E11.22 Type 2 diabetes mellitus with diabetic chronic kidney disease; F03.90 Unspecified dementia, unspecified severity, without behavioral disturbance, psychotic disturbance, mood disturbance, and anxiety; E11.51 Type 2 diabetes mellitus with diabetic peripheral angiopathy without gangrene; E87.8 Other disorders of electrolyte and fluid balance, not elsewhere classified; E86.0 Dehydration; E83.51 Hypocalcemia; E03.9 Hypothyroidism, unspecified; Z66 Do not resuscitate; E87.6 Hypokalemia; R62.7 Adult failure to thrive; E83.119 Hemochromatosis, unspecified; M81.0 Age-related osteoporosis without current pathological fracture; N18.9 Chronic kidney disease, unspecified; I12.9 Hypertensive chronic kidney disease with stage 1 through stage 4 chronic kidney disease, or unspecified chronic kidney disease; E78.5 Hyperlipidemia, unspecified; E86.9 Volume depletion, unspecified; Z79.01 Long term (current) use of anticoagulants
CPT/HCPCS: 36415; 36600; 51702; 70450; 71010; 74150; 76705; 80048; 80053; 80076; 81001; 82150; 82803; 82948; 83036; 83605; 83690; 83735; 83880; 84100; 84436; 84439; 84443; 84479; 85025; 85610; 85730; 87040; 87081; 92610; 93005; 93880; 93925; 93970; 94640; 96365; 96366; 96367; 99285; J1815; J1956; J2001; J2185; J2270; J2543; J3370; J3475; J3480; J3490; J7030; J7042; J7060; J7620; Q0092